=== PATIENT | female | born 1990 | race Caucasian/White ===

== ENCOUNTER 2017-04-18 06:29 | Day surgery (SDC) | payer OTHER ==
[2017-04-18] MEDS ORDERED: LR 1,000 ML IV ×2 (06:45→09:15)
[2017-04-18] MEDS ORDERED: LIDOCAINE 1% MDV 20ML VIAL SQ (06:45)
[2017-04-18] MEDS ORDERED: ROCURONIUM BROMIDE 50 MG/5 ML VIAL As Ordered (07:02)
[2017-04-18] MEDS ORDERED: fentaNYL 100 MCG/2 ML INJECTION (J3010) As Ordered (07:02)
[2017-04-18] MEDS ORDERED: KETOROLAC 60 MG/2 ML VIAL (J1885) As Ordered (07:02)
[2017-04-18] MEDS ORDERED: LIDOCAINE 2% INJ 100 MG/5 ML SDV (FOR ANES.) As Ordered (07:02)
[2017-04-18] MEDS ORDERED: MIDAZOLAM INJ 2 MG/2 ML VIAL (J2250) As Ordered (07:02)
[2017-04-18] MEDS ORDERED: PROPOFOL 200 MG/20 ML VIAL As Ordered (07:02)
[2017-04-18] MEDS ORDERED: dexameTHASONE 4 MG/ML 1ML VIAL (J1100) As Ordered (07:02)
[2017-04-18] MEDS ORDERED: ONDANSETRON 4MG/2ML VIAL (J2405) As Ordered (07:02)
[2017-04-18] MEDS ORDERED: IODINE STRONG SOLN 15 ML BTL As Ordered (07:05)
[2017-04-18] MEDS: LIDOCAINE W/EPINEPHRINE 1% 20ML VIAL As Ordered (07:05)
[2017-04-18 07:16] LABS: CONTROL LINE HCG INT CTR LINE PRESENT; HCG, SERUM QUALITATIVE NEGATIVE (NEGATIVE)
[2017-04-18] MEDS: THROMBIN SOLN 5,000 UNITS VIAL As Ordered (08:14)
[2017-04-18] MEDS ORDERED: ONDANSETRON 4MG/2ML VIAL (J2405) IV (09:15)
[2017-04-18] MEDS ORDERED: fentaNYL 100 MCG/2 ML INJECTION (J3010) IV (09:15)
[2017-04-18] MEDS: PERCOCET 5MG/325MG TAB PO (09:47)
== END 2017-04-18 10:08 | disposition home or self-care (01) ==
LOC: M SDC 06:29
DX: N72 Inflammatory disease of cervix uteri (principal); T88.59XD Other complications of anesthesia, subsequent encounter; M51.9 Unspecified thoracic, thoracolumbar and lumbosacral intervertebral disc disorder; Z88.0 Allergy status to penicillin; Z91.018 Allergy to other foods
CPT/HCPCS: 57520

== ENCOUNTER → 2017-08-24 | Outpatient (CLI) | payer OTHER ==
[~2017-08-24] MED LIST: ISOVUE-370 76% 100ML VIAL (Q9967) As Ordered
== END ==
LOC: M RADPRO 11:32
DX: N97.9 Female infertility, unspecified (principal)
CPT/HCPCS: 58340

== ENCOUNTER 2018-06-05 09:34 | Emergency (ER) | payer OTHER ==
[~2018-06-05] VITALS: Ht 160 cm; Wt 47.6 kg
[~2018-06-05 09:34] MED LIST changes: -ISOVUE-370 76% 100ML VIAL (Q9967) As Ordered; +TYLE325T5 PO
[2018-06-05 10:43] LABS: HEMATOCRIT 35.6 % (36.0-47.0); HEMOGLOBIN 12.1 g/dl (12.0-15.5); MEAN CORPUSCULAR HEMOGLOBIN 31.8 pg (27.0-33.0); MEAN CORPUSCULAR VOLUME 93.4 fl (80.0-96.0); PLATELET COUNT, AUTOMATED 251 10^3/uL (150-450); RED BLOOD COUNT 3.81 10^6/uL (4.00-5.40); WHITE BLOOD COUNT 12.9 10^3/uL (4.0-10.0)
[2018-06-05 10:58] LABS: ALT/SGPT 22 U/L (12-78); BILIRUBIN,DIRECT < 0.1 MG/DL (0.0-0.2); BILIRUBIN,TOTAL 0.2 MG/DL (0.2-1.0); BLOOD UREA NITROGEN 10 MG/DL (7-18); CALCIUM LEVEL 8.3 MG/DL (8.5-10.1); CARBON DIOXIDE LEVEL 25 MEQ/L (21-32); CHLORIDE LEVEL 110 MEQ/L (98-107); CPK CREATINE PHOSPHOKINASE 55 U/L (26-192); CREATININE FOR GFR 0.54 MG/DL (0.55-1.30); GLOMERULAR FILTRATION RATE > 60.0 (>60); GLUCOSE, FASTING 93 MG/DL (70-100); POTASSIUM SERUM 3.8 MEQ/L (3.5-5.1); SODIUM LEVEL 140 MEQ/L (136-145); TOTAL PROTEIN 6.9 GM/DL (6.4-8.2)
[2018-06-05 13:06] VITALS: BP 102/58
[2018-06-05] MEDS ORDERED: ONDANSETRON 4 MG ORAL DISINTEGRATING TAB (Q0162 PER 1MG) As Ordered ONE (14:41)
--- NOTE | 2018-06-05 21:24 | ECGEPIP ---
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
== END 2018-06-05 15:10 | disposition home or self-care (01) ==
LOC: M ED 09:34
DX: O99.342 Other mental disorders complicating pregnancy, second trimester (principal); F41.0 Panic disorder [episodic paroxysmal anxiety]; O99.352 Diseases of the nervous system complicating pregnancy, second trimester; G40.89 Other seizures; Z88.0 Allergy status to penicillin; Z91.018 Allergy to other foods; Z3A.19 19 weeks gestation of pregnancy

== ENCOUNTER 2018-10-07 08:19 | Inpatient (IN) | payer OTHER ==
[2018-10-07] VITALS (52 sets, daily range): BP systolic 97–166; BP diastolic 51–77
[~2018-10-07] VITALS: Ht 160 cm; Wt 54.4 kg
[2018-10-07] MEDS ORDERED: PRENTAB9 PO (08:50)
[2018-10-07] MEDS ORDERED: FERR325T3 PO (08:50)
[2018-10-07] MEDS ORDERED: URSO300C3 PO (08:52)
[2018-10-07] MEDS ORDERED: OXYTOCIN 30 UNITS IN 0.9% NaCl 500ML IV BAG (J2590) As Ordered ONE (10:14)
--- NOTE | 2018-10-07 10:24 | HPEPDOC ---
Obstetrical History & Physical General Date of Admission Oct 07, 2018 at 08:19 History of Present Illness 27 yo at 37+0 weeks today by 9+0 week US on 26Mar2018 presents to L&D f or IOL for intrahepatic cholestasis of . She is currently taking Ursodiol and her bile acids have decreased from 50 to 25. She also has been on 17-OHP due to a history of a spontaneous 35 week delivery. Today she reports feeling well. She denies any vaginal bleeding or leakage of fluid. She endorses movement. Chief Complaint: Induction of labor Information Provided By: Patient Age: 27 : 4 Term: 1 Pre-term: 1 Abortions: 1 Livin Care Care: Good Care Dating Final EDC: Oct 28, 2018 Final EDC for Daily Update: Oct 28, 2018 Final EDC by: 1st trimester (US) (9+0 week US on 26Mar2018 set COLE of [id number]) 1st Trimester Date: Mar 26, 2018 Antepartum Course Diagnos(e)s Cholestasis of --> on ursodiol. Bile acids have decreased to 25 from 50. Anemia --> taking iron Hx of pseudoseizures ---> neurology referral and electrocardiogram normal History of CKC for AIS ---> AIS not substantiated on biopsy specimen EIF and choroid plexus cyst seen on anatomy US ---> Declined genetic screening Past Medical History Past Obstetrical History : Past Obstetrical History: Multigravida (35 week , term , SAB X1, G4 - current ) Type of Delivery: Spontaneous Vaginal Del. 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: Abnormal Pap (History of apparent AIS though this was not substantiated on exicisonal specimen) Past Medical History Medical History Anemia Underweight --> pre BMI 17 Pseudoseizures Surgical History: Other (Open appendectomy, ovarian cystectomy, cold knife cone) Family History Significant Family History: No pertinent family hx Family History Non contributory Social History Marital Status: Family situation: Spouse/partner home Psychosocial History: No pertinent psych hx * Smoker: non-smoker Alcohol: Denies Drugs: denies Imunizations Tdap status: declined Influenza Status: declined Allergies Coded Allergies: Penicillins (Verified Allergy, Severe, DIFFICULTY BREATHING, 10/07/18) pineapple (Verified Allergy, Severe, TONGUE SWELLS AND DIFFICULTY BREATHING, 10/07/18) Medications Scheduled Ferrous Sulfate (Ferrous Sulfate) 325 Mg Tablet.dr, 325 MG PO BID No.137/Iron/Folic Acd ( Vitamin Tablet) 1 Each Tablet, 1 TAB PO DAILY Ursodiol (Ursodiol) 300 Mg Capsule, 1 CAP PO TID Physical Examination Physical Examination GENERAL: Alert and oriented times three. ABDOMEN: Gravid and non-tender to touch. FETUS: Is vertex (VTX) by sterile vaginal examination (SVE) EXTREMITIES: No edema. Vital Signs/I&O Vital Signs Date Time Temp Pulse Resp B/P (MAP) Pulse Ox O2 Delivery O2 Flow Rate FiO2 10/07/18 08:40 97.4 105 18 100/68 (79) Laboratory Data Urine Culture: No Growth Pertinent Laboratoy Data Blood Type: O+ RBC Antibody Screen: Negative HIV: Negative Hepatitis B: Negative Hepatitis C: Unknown Rapid Plasma Reagin: Nonreactive Rubella: Immune Varicella: Immune Chlamydia/Gonorrhea: Negative Group B Streptococcus: Negative Quad Screen Test: Declined Cystic Fibrosis: Declined Glucose Tolerance Test: 143 (Had abnormal 1hr of 143, but normal fingerstick testing) Anatomy Ultrasound Placenta Location: Anterior Normal Anatomy: No (Small EIF and choroid plexus cyst but otherwise normal) Placenta Previa: No Steroid Therapy Steroid Therapy: Yes (Received BTMZ on September 16 and September 17) Date #1: Sep 16, 2018 Date #2: Sep 17, 2018 Reason History of 35 week delivery and plan for early IOL for ICP Vaginal Examination Dilation: 3 cm Effacement: 60% Station: -1 Cervical Consistency: Soft Cervical Position: Middle Presentation: Cephalic presentation Position: Vertex (occiput) Assessment Heart Rate (FHR): 140 Variability: Moderate Accelerations: Positive Decelerations: None Tocometer Contractions: Yes Frequency: irregular Strength: palpated as mild Assessment/Plan Assessment 27 yo at 37+0 weeks presents for IOL today for intrahepatic cholestasis of . Plan Admit to L&D for IOL. Apply IV fluids. GBS negative. Cervix favorable. Will start IOL with pitocin. Patient may have epidural if desired. Anticipate . DO ELIER Moreland CHRISTOPHER J. DO Oct 07, 2018 10:24
[2018-10-07] MEDS ORDERED: OXYTOCIN DRIP 30 UNITS in APPROPRIATE DILUENT 1 EA IV SCH (10:30)
[2018-10-07] MEDS: LR 1,000 ML IV SCH ×3 (10:35→17:02)
[2018-10-07 10:52] LABS: HEMATOCRIT 37.9 % (36.0-47.0); MEAN CORPUSCULAR HEMOGLOBIN 31.2 pg (27.0-33.0); MEAN CORPUSCULAR HGB CONC 34.3 g/dl (32.0-36.5); MEAN CORPUSCULAR VOLUME 90.9 fl (80.0-96.0); PLATELET COUNT, AUTOMATED 179 10^3/uL (150-450); RED BLOOD COUNT 4.17 10^6/uL (4.00-5.40); WHITE BLOOD COUNT 8.8 10^3/uL (4.0-10.0)
[2018-10-07] MEDS ORDERED: FENTANYL 2MCG/ML ROPIVACAINE 0.2% IN 0.9% NACL 100ML IVBAG As Ordered ONE (15:57)
[2018-10-07] MEDS: FENTANYL/ROPIVACAINE/NACL BAG 100 ML EPIDURAL SCH ×2 (17:13→19:00)
[2018-10-07] MEDS ORDERED: EPIDURAL COMMENT XX SCH (17:30)
[2018-10-07] MEDS ORDERED: ePHEDrine SULFATE 25 MG/5 ML(5MG/ML) SYRINGE IV PRN (17:30)
[2018-10-07] MEDS ORDERED: LACTATED RINGER'S 1000 ML IV PRN (17:30)
[2018-10-07] MEDS ORDERED: NALOXONE INJ 0.4 MG/1 ML VIAL (J2310) IV PRN (17:30)
[2018-10-07] MEDS ORDERED: diphenhydrAMINE INJ 50MG/ML VIAL (J1200) IV PRN (17:30)
[2018-10-07] MEDS ORDERED: EPIDURAL/PCA KEYS XX PRN (17:30)
[2018-10-07] MEDS ORDERED: REFRIGERATOR IV KEYS XX PRN (17:30)
[2018-10-07] MEDS ORDERED: ONDANSETRON 4MG/2ML VIAL (J2405) IV PRN (17:30)
[2018-10-07] MEDS ORDERED: RHOGAM 300 MCG (1500 IU) INJ (J2790) IM SCH (23:00)
[2018-10-07] MEDS ORDERED: ACETAMINOPHEN TAB 650MG DOSE (2X325MG) PO PRN (23:00)
[2018-10-07] MEDS ORDERED: METHYLERGONOVINE MALEATE 0.2 MG TAB PO PRN (23:00)
[2018-10-07] MEDS ORDERED: ANUSOL HC CREAM 30GM TOP PRN (23:00)
[2018-10-07] MEDS ORDERED: IBUPROFEN 600 MG TAB PO PRN (23:00)
[2018-10-07] MEDS ORDERED: DIBUCAINE 1% OINTMENT 30GM TOP PRN (23:00)
[2018-10-07] MEDS ORDERED: DOCUSATE SODIUM 100 MG CAP PO PRN (23:00)
[2018-10-07] MEDS ORDERED: MEASLES,MUMPS,RUBELLA VACCINE INJ (MMR-II) (90707) SC SCH (23:00)
[2018-10-08 01:50] VITALS: BP 110/63
[2018-10-08] MEDS: ACETAMINOPHEN 500 MG TAB PO PRN ×2 (05:07→15:17)
[2018-10-08 06:40] VITALS: BP 111/57
[2018-10-08] MEDS: PRENATAL VITAMINS CHEWABLE TABLET PO SCH (08:37)
[2018-10-08] MEDS: IBUPROFEN 800 MG TAB PO PRN (08:38)
--- NOTE | 2018-10-08 08:44 | NUR ---
Progress Note Date of Service: Oct 08, 2018 Marta is a 27 yo G4 now P2123 s/p uncomplicated late evening of 07 October after being admitted for 37 week IOL d/t ICP. She is currently recovering on the ambriz. She reports feeling well this AM and only complains of some low back pain. She is ambulating, voiding, tolerating a regular diet, and has minimal lochia. She is breast and bottle feeding. Vitals - VSS, normotensive, afebrile, non tachycardic General - AAOX3, sitting up in bed, NAD, pleasant and conversant Abdomen - Fundus firm at U-1. No fundal tenderness. Extremities - No edema UO - appropriate. Ms. Fregoso is doing well and is making an appropriate recovery. Likely d/c home tomorrow. Will continue routine care and consult as needed. All questions answered.
[2018-10-08 18:00] VITALS: BP 119/61
--- NOTE | 2018-10-09 00:03 | DN ---
DATE: 10/07/2018 DELIVERY NOTE: Marta is a 27-year-old female, 3, para 1-1-0-2, who is admitted at 37 weeks gestation for an induction. She progressed to fully dilated after artificial rupture of membranes and Pitocin augmentation. Delivered a live female infant in left occiput anterior position with a nuchal cord x1. score 8 and 9, weight 6 pounds, 1 ounce. Placenta delivered spontaneously intact. Three-vessel cord. Perineum, vagina and cervix inspected. No laceration noted. Estimated blood loss 250 mL. Both mother and baby in stable condition.
[2018-10-09] MEDS: IBUPROFEN 800 MG TAB PO PRN (05:33)
[2018-10-09 06:00] VITALS: BP 121/73
[2018-10-09] MEDS ORDERED: IBUP80TA PO (08:15)
[2018-10-09] MEDS ORDERED: ACET-683 PO (08:15)
[2018-10-09] MEDS ORDERED: DIBU10OI TOP (08:15)
--- NOTE | 2018-10-09 08:20 | DS.PDOC ---
Discharge Summary General Date of Admission Oct 07, 2018 at 08:19 Date of Discharge October 09, 2018 Discharge Summary HOSPITAL COURSE: Ms. Fregoso is a 28 yo G4 now P3 who underwent an uncomplicated late at night on 07Oct2018 after being admitted for an IOL for ICP. Her course has been unremarkable. On her day of discharge she met all appropriate discharge criteria. She was ambulating, voiding, tolerating a regular diet, and had minimal pain and lochia. DISCHARGE MEDICATIONS: Please see below. ALLERGIES: Please see below. PHYSICAL EXAMINATION ON DISCHARGE: VITAL SIGNS: Please see below. GENERAL: AAOX3, laying in bed, NAD ABDOMINAL EXAMINATION: Fundus firm at U-2. No fundal tenderness EXTREMITIES: No edema PSYCHIATRIC EXAMINATION: Affect appropriate LABORATORY DATA: Please see below. ACTIVITY: Pelvic rest for 6 weeks DIET: Regular DISCHARGE PLAN: Discharge to home or to boarder status DISPOSITION: Discharge to home or to boarder status on 09Oct2018. DISCHARGE INSTRUCTIONS: 1. Pelvic rest for 6 weeks ITEMS TO FOLLOWUP ON ON OUTPATIENT: 1. appointment in 6 weeks. DISCHARGE CONDITION: Stable. TIME SPENT ON DISCHARGE: Greater than 20 minutes. Arsalan Hemphill DO Vital Signs/I&Os Vital Signs Date Time Temp Pulse Resp B/P (MAP) Pulse Ox O2 Delivery O2 Flow Rate FiO2 10/09/18 06:00 97.4 62 17 121/73 (89) 10/08/18 01:50 98 Discharge Medications Scheduled Ferrous Sulfate (Ferrous Sulfate) 325 Mg Tablet.dr, 325 MG PO BID, (Reported) No.137/Iron/Folic Acd ( Vitamin Tablet) 1 Each Tablet, 1 TAB PO DAILY, (Reported) Ursodiol (Ursodiol) 300 Mg Capsule, 1 CAP PO TID, (Reported) Scheduled PRN Acetaminophen (Acetaminophen) 500 Mg Tablet, 1,000 MG PO Q6HP PRN for PAIN SCALE 6-10 Dibucaine (Dibucaine) 28 Gm Oint...g., 0 DOSE TOP Q4HP PRN for PAIN Ibuprofen (Ibuprofen) 800 Mg Tablet, 800 MG PO Q8HP PRN for PAIN SCALE 6-10 Allergies Coded Allergies: Penicillins (Verified Allergy, Severe, DIFFICULTY BREATHING, 10/07/18) pineapple (Verified Allergy, Severe, TONGUE SWELLS AND DIFFICULTY BREATHING, 10/07/18) ARSALAN HEMPHILL DO Oct 09, 2018 08:20
[2018-10-09] MEDS: PRENATAL VITAMINS CHEWABLE TABLET PO SCH (08:53)
== END 2018-10-09 11:50 | disposition home or self-care (01) | DRG 807 ==
LOC: M LDI 08:19 → M OBS 10-08 01:31
PROVIDERS: ADMIT Obstetrics & Gynecology; ATTEND Obstetrics & Gynecology
PROC: 10E0XZZ Delivery of Products of Conception, External Approach (ICD-10-PCS; principal; 2018-10-07)
PROC: 10907ZC Drainage of Amniotic Fluid, Therapeutic from Products of Conception, Via Natural or Artificial Opening (ICD-10-PCS; 2018-10-07)
PROC: 3E033VJ Introduction of Other Hormone into Peripheral Vein, Percutaneous Approach (ICD-10-PCS; 2018-10-07)
DX: O26.62 Liver and biliary tract disorders in childbirth (principal); Z37.0 Single live birth; Z3A.37 37 weeks gestation of pregnancy; O69.81X0 Labor and delivery complicated by cord around neck, without compression, not applicable or unspecified